=== PATIENT | male | born 1975 | race Caucasian/White ===

== ENCOUNTER 2019-11-04 21:06 | Inpatient (IN) | payer BC ==
[~2019-11-04] VITALS: Ht 185.4 cm; Wt 98.2 kg
[2019-11-04] MEDS ORDERED: aspirin 81mg tab.chew PO ONE ×2 (21:30→22:05)
[2019-11-04] MEDS ORDERED: enoxaparin 100mg/ml syringe SUBCUT ONE (21:40)
[2019-11-04] MEDS ORDERED: prasugrel 10mg tablet PO STA (21:46)
[2019-11-04] MEDS ORDERED: EMTR1TAB12 PO (21:50)
[2019-11-04] MEDS ORDERED: PRAS10TA6 PO (21:50)
[2019-11-04] MEDS ORDERED: ASPI81TA52 PO (21:50)
[2019-11-04] MEDS ORDERED: ROSU20TA2 PO (21:50)
[2019-11-04] MEDS ORDERED: EVOL140P3 SUBCUT (21:50)
[2019-11-04] MEDS ORDERED: LISI10TA4 PO (21:50)
[2019-11-04] MEDS ORDERED: METO25TA6 PO (21:50)
[2019-11-04 21:55] LABS: BASOPHILS # (AUTO) 0.1 X10'3 (0-0.2); EOSINOPHILS # (AUTO) 0.1 X10'3 (0-0.9); EOSINOPHILS % (AUTO) 1.2 % (0-6); HEMATOCRIT 44.1 % (42.0-52.0); HEMOGLOBIN 15.3 g/dl (14.0-17.9); LYMPHOCYTES # (AUTO) 2.1 X10'3 (1.1-4.8); LYMPHOCYTES % (AUTO) 38.6 % (21-51); MEAN CORPUSCULAR HEMOGLOBIN 31.3 PG (27.0-31.0); MEAN CORPUSCULAR HGB CONC 34.7 g/dL (33.0-36.5); MEAN CORPUSCULAR VOLUME 90.2 FL (78-98); MEAN PLATELET VOLUME 8.5 FL (7.4-10.4); MONOCYTES # (AUTO) 0.5 X10'3 (0-0.9); MONOCYTES % (AUTO) 9.9 % (2-12); NEUTROPHILS # (AUTO) 2.7 X10'3 (1.8-7.7); NEUTROPHILS % (AUTO) 49.3 % (42-75); PLATELET COUNT 211 X10'3 (140-440); RED CELL DISTRIBUTION WIDTH 12.9 % (11.5-14.5); WHITE BLOOD COUNT 5.5 X10'3 (4.5-11.0)
[2019-11-04] MEDS ORDERED: potassium Cl 20 mEq SR tablet PO PRN ×2 (22:05)
[2019-11-04] MEDS ORDERED: HYDROcodone/acetaminophen 5mg/325mg tablet PO PRN (22:05)
[2019-11-04] MEDS ORDERED: mag hydrox/Alum hydrox/simeth 30ml oral suspension PO PRN (22:05)
[2019-11-04] MEDS ORDERED: nitroGLYCERIN 0.4mg SUBLingual tab SL PRN ×2 (22:05→23:05)
[2019-11-04] MEDS ORDERED: magnesium Cl slow-release 64mg tablet PO PRN (22:05)
[2019-11-04] MEDS ORDERED: ondansetron/PF 4mg/2ml inj IV PRN (22:05)
[2019-11-04] MEDS ORDERED: potassium CL 10mEq/100ml bag 100 ML IV PRN ×2 (22:05)
[2019-11-04] MEDS ORDERED: magnesium 4gm in 100ml NS 100 ML IV PRN (22:05)
[2019-11-04] MEDS ORDERED: acetaminophen 325mg tablet PO PRN (22:05)
[2019-11-04] MEDS ORDERED: magnesium hydroxide 30ml (MOM) UD suspension PO PRN (22:05)
[2019-11-04] MEDS ORDERED: morphine 2 MG/ML inj. syringe IV PRN (22:05)
[2019-11-04] MEDS ORDERED: magnesium 2GM in 50ml NS 50 ML IV PRN (22:05)
[2019-11-04] MEDS ORDERED: bisacodyl 10mg suppository rectal RC PRN (22:05)
[2019-11-04 22:07] LABS: ALANINE AMINOTRANSFERASE 25 U/L (12-78); ALBUMIN 3.9 G/DL (3.4-5.0); ALBUMIN/GLOBULIN RATIO 1.3 (1.1-1.5); ALKALINE PHOSPHATASE 72 IU/L (46-116); ANION GAP 11 (8-16); ASPARTATE AMINO TRANSFERASE 18 U/L (10-37); BILIRUBIN,TOTAL 0.3 MG/DL (0.1-1.0); BLOOD UREA NITROGEN 15 MG/DL (7-18); BUN/CREATININE RATIO 15.5 (5.4-32.0); CALCIUM 8.7 MG/DL (8.5-10.1); CHLORIDE 109 MMOL/L (99-107); CREATININE 0.97 MG/DL (0.60-1.10); GLUCOSE 105 MG/DL (70-104); POTASSIUM 3.4 MMOL/L (3.5-5.1); SODIUM 145 MMOL/L (135-145); TOTAL CARBON DIOXIDE 24.7 MMOL/L (24-32); eGFR 84 ML/MIN
[2019-11-04 22:15] LABS: MAGNESIUM 1.9 MG/DL (1.5-2.4); TROPONIN I < 0.04 NG/ML (0.0-0.05)
--- NOTE | 2019-11-04 23:04 | NUR ---
ASKED TO REVIEW CHART FOR ADMISSION TO FLOOR
[2019-11-04] MEDS ORDERED: metoprolol tartrate 1mg/ml inj IV PRN (23:05)
[2019-11-04] MEDS ORDERED: regadenoson 0.4mg/5ml syringe IV PRN (23:05)
[2019-11-04] MEDS ORDERED: aminophylline 250mg/10ml inj. IV PRN (23:05)
[2019-11-04] MEDS: heparin, porcine 5000 units/ml vial SQ SCH (23:56)
[2019-11-05] VITALS (12 sets, daily range): BP systolic 96–146; BP diastolic 61–89
[2019-11-05] MEDS ORDERED: temazepam 15mg capsule PO ONE (01:05)
[2019-11-05] MEDS ORDERED: diphenhydrAMINE 25mg capsule PO PRN (01:05)
[2019-11-05 03:57] LABS: BASOPHILS # (AUTO) 0.1 X10'3 (0-0.2); EOSINOPHILS # (AUTO) 0.1 X10'3 (0-0.9); EOSINOPHILS % (AUTO) 1.3 % (0-6); HEMATOCRIT 43.8 % (42.0-52.0); HEMOGLOBIN 15.1 g/dl (14.0-17.9); LYMPHOCYTES # (AUTO) 2.1 X10'3 (1.1-4.8); LYMPHOCYTES % (AUTO) 32.7 % (21-51); MEAN CORPUSCULAR HGB CONC 34.4 g/dL (33.0-36.5); MEAN CORPUSCULAR VOLUME 90.1 FL (78-98); MEAN PLATELET VOLUME 8.5 FL (7.4-10.4); MONOCYTES # (AUTO) 0.7 X10'3 (0-0.9); MONOCYTES % (AUTO) 10.7 % (2-12); NEUTROPHILS # (AUTO) 3.6 X10'3 (1.8-7.7); NEUTROPHILS % (AUTO) 54.3 % (42-75); PLATELET COUNT 204 X10'3 (140-440); RED BLOOD COUNT 4.86 X10'6 (4.70-6.10); RED CELL DISTRIBUTION WIDTH 13.1 % (11.5-14.5); WHITE BLOOD COUNT 6.5 X10'3 (4.5-11.0)
[2019-11-05 04:10] LABS: ALANINE AMINOTRANSFERASE 27 U/L (12-78); ALBUMIN 3.8 G/DL (3.4-5.0); ALBUMIN/GLOBULIN RATIO 1.2 (1.1-1.5); ALKALINE PHOSPHATASE 76 IU/L (46-116); ANION GAP 9 (8-16); ASPARTATE AMINO TRANSFERASE 20 U/L (10-37); BILIRUBIN,TOTAL 0.3 MG/DL (0.1-1.0); BLOOD UREA NITROGEN 19 MG/DL (7-18); BUN/CREATININE RATIO 18.4 (5.4-32.0); CHLORIDE 108 MMOL/L (99-107); CREATININE 1.03 MG/DL (0.60-1.10); GLUCOSE 98 MG/DL (70-104); POTASSIUM 3.7 MMOL/L (3.5-5.1); SODIUM 140 MMOL/L (135-145); TOTAL CARBON DIOXIDE 23.3 MMOL/L (24-32); eGFR 78 ML/MIN
[2019-11-05 04:13] LABS: MAGNESIUM 2.2 MG/DL (1.5-2.4); PHOSPHORUS 4.7 MG/DL (2.3-4.5)
--- NOTE | 2019-11-05 06:25 | NUR ---
Problems reprioritized. Patient report given, questions answered & plan of care reviewed with Ernestine ALLEN.
[2019-11-05] MEDS: heparin, porcine 5000 units/ml vial SQ SCH (07:28)
[2019-11-05] MEDS ORDERED: K and/or MAG REPLACEMENT MC SCH (08:00)
[2019-11-05] MEDS ORDERED: atorvastatin 10mg tablet PO SCH ×2 (08:00→21:00)
[2019-11-05] MEDS ORDERED: docusate sod 100mg capsule PO SCH (08:00)
[2019-11-05] MEDS ORDERED: metoprolol tartrate 25mg tablet PO SCH (08:00)
[2019-11-05] MEDS ORDERED: lisinopril 10 MG tablet PO SCH (08:00)
[2019-11-05] MEDS ORDERED: aspirin 81mg tab.chew PO SCH (08:00)
[2019-11-05] MEDS ORDERED: emtricitabine/tenofovir 200mg/300mg tablet PO SCH (08:00)
[2019-11-05] MEDS ORDERED: metoprolol tartrate 12.5mg (1/2 tablet) PO SCH (08:00)
--- NOTE | 2019-11-05 14:49 | NUR ---
Dr. collins paged: PAGER ID: [phone] MESSAGE: [phone]: CHARLIE - bowen prelim report done
--- NOTE | 2019-11-05 16:00 | NUR ---
reviewed all discharge instructions,including meds,no new prescriptions,pt aware of need for f/u appts with electric cell tender/PCP.SL dc'd from right hand and left AC,both sites clear,dc'd home via w/c with all belongings
[2019-11-05] MEDS ORDERED: prasugrel 10mg tablet PO SCH (21:00)
== END 2019-11-05 16:20 | disposition home or self-care (01) | DRG 311 ==
LOC: ER 21:07 → ED HOLD 22:02 → MED 3N 11-05 00:40
PROVIDERS: ADMIT Family Medicine; ATTEND Internal Medicine
PROC: 4A02XM4 Measurement of Cardiac Total Activity, External Approach (ICD-10-PCS; principal; 2019-11-05)
PROC: 3E033HZ Introduction of Radioactive Substance into Peripheral Vein, Percutaneous Approach (ICD-10-PCS; 2019-11-05)
DX: I24.9 Acute ischemic heart disease, unspecified (principal); I25.10 Atherosclerotic heart disease of native coronary artery without angina pectoris; I10 Essential (primary) hypertension; I25.2 Old myocardial infarction; Z95.5 Presence of coronary angioplasty implant and graft; Z79.899 Other long term (current) drug therapy
CPT/HCPCS: 36415; 71045; 78452; 80053; 83735; 83880; 84100; 84484; 85025; 87081; 93005; 93017; 93306; 96372; 99285; A9500; G0378; J1644; J1650; J2785